=== PATIENT | male | born 1985 | race Caucasian/White ===

== ENCOUNTER → 2019-10-27 07:23 | Outpatient (CLI) | payer OTHER, SELFPAY ==
[2019-10-27 09:00] LABS: Cholesterol 155 mg/dL (140-199); HDL Cholesterol 42 mg/dL (40-60); LDL Cholesterol Calculated 97 mg/dL (<100); Triglycerides 80 mg/dL (35-150)
[2019-10-27 09:07] LABS: Vitamin D 25 Hydroxy (D3) 43.3 ng/mL (30.0-100.0)
[2019-10-29 09:09] LABS: Lipoprotein (a) 13.4 nmol/L (<75.0)
== END ==
PROVIDERS: PCP Family Medicine; Referring Provider Psychiatry & Neurology Psychiatry; Visit Provider Psychiatry & Neurology Psychiatry
DX: Z79.899 Other long term (current) drug therapy (principal); F41.9 Anxiety disorder, unspecified
CPT/HCPCS: 36415; 80061; 82306; 82542; 82725; 83695

== ENCOUNTER → 2019-11-11 08:34 | Outpatient (CLI) | payer OTHER, SELFPAY | PROVIDERS: Referring Provider Psychiatry & Neurology Psychiatry; Visit Provider Psychiatry & Neurology Psychiatry | DX: F41.9 Anxiety disorder, unspecified (principal); E78.5 Hyperlipidemia, unspecified; E55.9 Vitamin D deficiency, unspecified; E56.9 Vitamin deficiency, unspecified; Z79.899 Other long term (current) drug therapy | CPT/HCPCS: 82542 ==